=== PATIENT | male | born 1965 | race African-American/Black ===

== ENCOUNTER 2019-01-02 16:05 | Observation (INO) ==
[2019-01-02] MEDS ORDERED: PANTOPRAZOLE 40 MG VIAL IV STA (18:56)
[2019-01-02] MEDS ORDERED: HYDROmorphone 2 MG/1 ML VIAL IV STA (18:56)
[2019-01-02] MEDS ORDERED: ONDANSETRON 4 MG/2 ML VIAL IV STA (18:56)
[2019-01-02] MEDS ORDERED: PIPERACILLIN/TAZOBACTAM 3,375 MG in SODIUM CHLORIDE 0.9% 100 ML IV STA (18:56)
[2019-01-02] MEDS ORDERED: SODIUM CHLORIDE 0.9% 1,000 ML IV STA (18:56)
[2019-01-02 19:05] LABS: Basophils % 0.4 % (0.0-0.8); Eosinophils % 0.4 % (0.00-10.9); Hematocrit 39.1 VOL% (42.0-52.0); Hemoglobin 13.9 GM/DL (14.0-18.0); Immature Granulocytes % 0.5 %; Immature Granulocytes Absolute 0.04 #; Lymphocytes # 0.9 10*3/uL (1.4-4.0); Lymphocytes % 10.6 % (21.2-54.2); Mean Corpuscular HGB Conc 35.5 GM/DL (32-36); Mean Corpuscular Volume 87.9 FL (87-102); Monocytes % 8.4 % (1.7-12.7); Neutrophils % 79.7 % (38.7-73.9); Platelet Count 201 T/CUMM (130-400); Red Blood Count 4.45 MC/CUMM (3.8-5.5); Red Cell Distribution Width 11.9 % (9.3-17.3); White Blood Count 8.4 T/CUMM (4-12)
[2019-01-02 19:19] LABS: Albumin 4.3 G/DL (3.4-5.0); Bilirubin,Total 0.7 MG/DL (0.2-1.0); Calcium 9.4 MG/DL (8.5-10.1); Osmolality,Calculated 279.4 MOS/KG (273-304)
[2019-01-02] MEDS ORDERED: HYDROmorphone 2 MG/1 ML VIAL IV PRN (21:14)
[2019-01-02] MEDS ORDERED: ONDANSETRON 4 MG/2 ML VIAL IV PRN (21:14)
[2019-01-02] MEDS ORDERED: ACETAMINOPHEN 325 MG TABLET PO PRN (21:14)
[2019-01-02] MEDS: FAMOTIDINE 20 MG/2 ML VIAL IV SCH (21:35)
[2019-01-02] MEDS: SODIUM CHLORIDE 0.9% 1,000 ML IV SCH (21:35)
[2019-01-03] MEDS: PIPERACILLIN/TAZOBACTAM 3,375 MG in SODIUM CHLORIDE 0.9% 100 ML IV SCH ×2 (03:50→11:29)
[2019-01-03 04:41] LABS: Basophils % 0.1 % (0.0-0.8); Eosinophils % 0.3 % (0.00-10.9); Hematocrit 38.5 VOL% (42.0-52.0); Hemoglobin 13.2 GM/DL (14.0-18.0); Immature Granulocytes % 0.5 %; Immature Granulocytes Absolute 0.04 #; Lymphocytes # 0.7 10*3/uL (1.4-4.0); Lymphocytes % 8.6 % (21.2-54.2); Mean Corpuscular HGB Conc 34.3 GM/DL (32-36); Mean Corpuscular Volume 89.5 FL (87-102); Mean Platelet Volume 11.1 FL (9.6-12.0); Monocytes % 9.2 % (1.7-12.7); Neutrophils % 81.3 % (38.7-73.9); Platelet Count 176 T/CUMM (130-400); Red Cell Distribution Width 12.2 % (9.3-17.3); White Blood Count 8.6 T/CUMM (4-12)
[2019-01-03 05:15] LABS: Albumin 3.5 G/DL (3.4-5.0); Bilirubin,Total 1.2 MG/DL (0.2-1.0); Calcium 8.8 MG/DL (8.5-10.1); Osmolality,Calculated 279.4 MOS/KG (273-304); Total Protein 6.9 G/DL (6.4-8.3)
[2019-01-03] MEDS: SODIUM CHLORIDE 0.9% 1,000 ML IV SCH ×3 (05:30→23:40)
[2019-01-03 07:44] LABS: Apearance,Urine CLEAR (Clear); Bilirubin,Urine Negative (Negative); Blood, Urine Negative (Negative); Glucose,Urine (UA) Negative (Negative); Ketones,Urine Negative (Negative); Mucus,Urine Occasional /LPF (Occasional); Nitrite,Urine Negative (Negative); Protein,Urine Negative; RBC,Urine 2 /HPF (0-4); Squamous Epithelial Cell,Urine Occasional /HPF (0-10); Urine Color Yellow (Yellow); Urine Urobilinogen < 2.0 EU/DL (0.2-1.0); WBC,Urine <1 /HPF (0-6)
[2019-01-03] MEDS ORDERED: PANTOPRAZOLE 40 MG VIAL IV SCH (09:00)
[2019-01-03] MEDS: LISINOPRIL 10 MG TABLET PO SCH (10:33)
[2019-01-03] MEDS: FAMOTIDINE 20 MG/2 ML VIAL IV SCH ×2 (10:33→21:14)
[2019-01-03] MEDS ORDERED: BUPIVACAINE 0.25% /EPI 10 ML VIAL ONE (13:54)
[2019-01-03] MEDS ORDERED: LIDOCAINE 1%/EPI INJ 20 ML VIAL ONE (13:54)
[2019-01-03] MEDS ORDERED: TISSUE ADHESIVE 1 EACH APPLICATOR TOP ONE (13:54)
[2019-01-03] MEDS ORDERED: PROPOFOL 200 MG/20 ML VIAL IV ONE (17:17)
[2019-01-03] MEDS ORDERED: SEVOFLURANE 1 UNIT/15 MINUTE INH ONE (17:17)
[2019-01-03] MEDS ORDERED: MIDAZOLAM 2 MG/2 ML VIAL ONE (17:17)
[2019-01-03] MEDS ORDERED: SUCCINYLCHOLINE 200 MG/10 ML VIAL ONE (17:18)
[2019-01-03] MEDS ORDERED: KETOROLAC 30 MG/1 ML VIAL ONE (17:18)
[2019-01-03] MEDS ORDERED: ACETAMINOPHEN 1,000 MG/100 ML VIAL IV ONE (17:18)
[2019-01-03] MEDS ORDERED: GLYCOPYRROLATE 0.4 MG/2 ML VIAL ONE (17:18)
[2019-01-03] MEDS ORDERED: NEOSTIGMINE 10 MG/10 ML VIAL ONE (17:18)
[2019-01-03] MEDS ORDERED: fentaNYL 100 MCG/2 ML VIAL ONE (17:18)
[2019-01-03] MEDS ORDERED: ROCURONIUM 100 MG/10 ML VIAL IV ONE (17:18)
[2019-01-03] MEDS ORDERED: DEXAMETHASONE 4 MG/1 ML VIAL ONE (17:18)
[2019-01-03] MEDS ORDERED: ONDANSETRON 4 MG/2 ML VIAL ONE (17:18)
[2019-01-04] MEDS: PIPERACILLIN/TAZOBACTAM 3,375 MG in SODIUM CHLORIDE 0.9% 100 ML IV SCH ×2 (01:09→11:01)
[2019-01-04 07:46] VITALS: BP 129/78
[2019-01-04] MEDS: LISINOPRIL 10 MG TABLET PO SCH (09:33)
[2019-01-04] MEDS: FAMOTIDINE 20 MG/2 ML VIAL IV SCH (09:34)
[2019-01-04] MEDS: SODIUM CHLORIDE 0.9% 1,000 ML IV SCH (09:41)
== END 2019-01-04 10:55 | disposition home or self-care (01) ==
LOC: N.ED 16:05 → N.EDINP 19:45 → INTOOBSV 19:45 → N.3E 20:54
PROVIDERS: ADMIT Surgery; ATTEND Surgery